=== PATIENT | male | born 1960 | race Caucasian/White ===

== ENCOUNTER 2017-03-19 08:49 | Emergency (ER) | payer OTHER ==
[~2017-03-19] VITALS: Ht 188 cm; Wt 97.7 kg
[~2017-03-19 08:49] MED LIST: CARV25T PO; IBUP200T48 PO; MULT-1007 PO; ZES10 PO; [UNRECOGNIZED DRUG - CODE] PO
[2017-03-19 08:52] VITALS: BP 125/71; PULSE 81; RESP 10; O2SAT 97
--- NOTE | 2017-03-19 09:12 | ED.REPORT ---
HPI-Dyspnea / Wheezing Date of Service Mar 19, 2017 ED Provider: Salvatore Trinidad MD The pt is a 56 y/o male with a hx of childhood asthma and HTN who presents to the ED complaining of shortness of breath, onset yesterday that significantly worsened this morning. Associated sx include wheezing and rhinorrhea for the last 5 weeks which worsened this week. The pt has not used inhalers or nebulizers. He denies fever, chest pain, and vomiting. The pt is currently taking amoxicillin. Nursing Notes Stated Complaint: SOB Chief Complaint: Respiratory Distress Nursing Notes Reviewed: Yes Allergies: Coded Allergies: No Known Allergies (Unverified Allergy, Unknown, 03/19/17) Scheduled Amoxicillin (Amoxicillin) 875 Mg Tablet 875 MG PO Q8hrs Carvedilol-Expunged Drug, Do Not Renew! (Carvedilol-Expunged Drug, Do Not Renew! ) 25 Mg Tablet 37.5 MG PO BID Dofetilide-Expunged Drug, Do Not Renew! (Tikosyn-Expunged Drug, Do Not Renew!) 500 Mcg Capsule 500 MCG PO BID Lisinopril (Lisinopril) 5 Mg Tablet 5 MG PO DAILY Multivitamin (Multi-Vitamin Daily) 1 Each Tablet 1 EACH PO DAILY Prednisone (PredniSONE) 20 Mg Tablet 40 MG PO DAILY Scheduled PRN Albuterol HFA (Proair HFA) 8.5 Gm Hfa.aer.ad 2 PUFFS INHALATION Q4H PRN PRN For Wheezing Ibuprofen (Ibuprofen) 600 Mg Tablet 600 MG PO TID PRN PRN For Pain General Time Seen by MD: 09:15 Chief Complaint Shortness of breath Hx Obtained From: Patient Arrived By: Walk-in Sudden in Onset?: Yes Onset Occurred: Yesterday Symptom Duration: Since onset Severity: Current: No pain currently Severity: Maximum: No pain Recent Healthcare: No recent doctor visit Similar Sx Previous: No Past Medical History Past Medical History Reports: Asthma, Hypertension Past Surgical History Cardiac ablation x2 hemorrhoidectomy Smoking History Unknown if Ever Smoker Social History Other Social History: Good social support Ambulatory Status Independent Review of Systems Constitutional: Denies: Fever Respiratory: Reports: Shortness of breath, Wheezing Cardiovascular: Denies: Chest pain Allergy / Immune: Reports: Rhinorrhea Complete sys rev & neg: except as marked. GI: Denies: Vomiting Physical Exam Initial Vital Signs Vital Signs (First) Date Time Temp Pulse Resp B/P Pulse Ox O2 Delivery O2 Flow Rate FiO2 03/19/17 08:52 36.6 81 10 125/71 97 Room Air 03/19/17 09:36 1.5 Initial VS: Reviewed Head / Eyes: Atraumatic, Normocephalic Abdomen / GI: Soft, Non-tender, No guarding, No rebound, No distention Extremities: Vascular intact, Neuro intact, No swelling, No tenderness Skin: Warm, Dry, No cyanosis Neurologic: Alert, Oriented, Nonfocal General/Constitutional: Awake, Alert, Cooperative, Not toxic appearing Distress / Hydration: Positive: Distress mild Neck: Atraumatic, Supple, Full range of motion Respiratory / Chest: Atraumatic, Breath sounds = bilat, No rales, No rhonchi Bilateral wheezes Moderate air movement Cardiovascular: Heart rate NL, Regular rhythm, Heart sounds NL, No gallop, No murmurs, No rubs Interpretation & Diagnostics Lab Results Interpretation Test 03/19/17 08:05 Hold Urine Received (Received) X-Ray Chest Interpretation Chest Xray Interpretation: IMPRESSION: No acute pulmonary process. Dictated by: Nan Sims M.D. on 03/19/2017 at 10:02 Approved by: Nan Sims M.D. on 03/19/2017 at 10:02 View: Portable, 1 view Interpretation / Wet Read by: Interpret - Radiologist Re-Eval/Medical Decision Med Decision/Clinical Course 56-year-old male history of childhood asthma presenting with runny nose times one month and shortness of breath since yesterday. He is mildly wheezy on arrival. He felt better with nebulizers. His oxygen remained high 90s on room air. Chest x-ray no pneumonia. Likely viral URI asthma exacerbation. He will be treated with steroid burst. Albuterol as needed. Return precautions given. Re-Evaluation/Progress #1: Time of Eval: :17 Re-Evaluation/Progress Note: Discussed the plan to administer steroids and do a chest X-ray. Informed the pt lab work is not necessary. He understands and agrees with the plan. All questions answered. Re-Evaluation/Progress #2: Time of Eval: 09:46 Patient Status: Condition improved Re-Evaluation/Progress Note: Rechecked pt. He appears more comfortable after the treatment. Re-Evaluation/Progress #3: Time of Eval: 10:32 Patient Status: Condition improved Re-Evaluation/Progress Note: Rechecked pt. He feels better. Discussed imaging results, diagnosis and plan to discharge. Pt understands and agrees with the plan. F/U instruction and RTER warning given. All questions addressed. Counseled Regarding: Diagnosis, Need for follow-up, When/why to return to ED Discharge & Departure Impression: Primary Impression: Asthma exacerbation Additional Impression: Rhinosinusitis Disposition: Home Discharge Condition All VS Reviewed: Yes Condition: Stable Patient Instructions: Asthma (ED) Additional Instructions: Thank you for entrusting us with your care today. Your chest X-ray is reassuring. You don't have pneumonia. It appears you have a viral infection. Take Prednisone once a day starting tomorrow for the next 5 days. You can use Flonase with Prednisone. Use the inhaler up to every 2 hours and a nebulizer as needed. Follow up with your primary care provider for further evaluation if needed. Return to the emergency department in case of new or worsening symptoms. Referrals: MYRTLE GOMEZ MD (PCP) Scribe Attestation Portions of this note were transcribed by Gopi Bullard. I,, personally performed the history,physical exam and medical decision-making;I reviewed and confirmed the accuracy of the information in the transcribed note. Signed by Korina Hurst. 03/19/17 copies to: MYRTLE GOMEZ MD, Ben M MD Mar 19, 2017 09:12 Gopi Bullard Mar 19, 2017 09:19
[2017-03-19] MEDS ORDERED: IBUP-1827 PO (09:13)
[2017-03-19] MEDS ORDERED: LISI-571 PO (09:13)
[2017-03-19] MEDS ORDERED: AMOX875T2 PO (09:13)
[2017-03-19] MEDS ORDERED: Dexamethasone 10 mg/mL Inj IM ONE (09:20)
[2017-03-19] MEDS ORDERED: Albuterol 2.5 mg/3 mL Inhalation Solution NEB ONE (09:20)
[2017-03-19 09:36] VITALS: PULSE 80; RESP 16; O2SAT 95
--- NOTE | 2017-03-19 10:04 | DRSVH ---
PROCEDURE: X-RAY CHEST ONE VIEW, PORTABLE ([id number]) INDICATIONS: dyspnea TECHNIQUE: One view of the chest was acquired. COMPARISON: [facility], , CHEST 1VW (PORTABLE), 09/13/2012, 8:07. FINDINGS: Surgical changes and devices: None. Lungs and pleura: No pleural effusions or pneumothorax. Lungs are clear. Mediastinum: Mediastinal contours appear normal. Heart size is normal. Bones and chest wall: No suspicious bony lesions. Overlying soft tissues appear unremarkable. IMPRESSION: No acute pulmonary process. Dictated by: Nan Sims M.D. on 03/19/2017 at 10:02 Approved by: Nan Sims M.D. on 03/19/2017 at 10:02
[2017-03-19] MEDS ORDERED: ALBU8.5H2 INHALATION (10:38)
[2017-03-19] MEDS ORDERED: PRE20 PO (10:38)
[2017-03-19 10:40] VITALS: BP 128/62; PULSE 79; RESP 13; O2SAT 96
[2017-03-19 10:50] VITALS: BP 128/62; PULSE 79; RESP 13; O2SAT 96
== END 2017-03-19 10:51 | disposition home or self-care (01) ==
LOC: SED 08:49
DX: J45.901 Unspecified asthma with (acute) exacerbation (principal); J32.9 Chronic sinusitis, unspecified; I10 Essential (primary) hypertension
CPT/HCPCS: 71010; 94640; 94664; 96372; 99284; J1100; J7613